=== PATIENT | female | born 1945 | race Caucasian/White ===

== ENCOUNTER 2021-02-08 18:33 | Emergency (ER) | payer MEDICARE ==
[~2021-02-08] VITALS: Ht 160 cm; Wt 68.1 kg
[~2021-02-08 18:33] MED LIST: AMLODIPINE10 MG PO; AMLODIPINE5 MG PO; CEPHALEXIN500 M1 PO; CIPROFLOXACN500 MG PO; CLONIDINE0.1 MG PO; CRESTOR10 MG OR; ENALAPRIL10 MG PO; FLEXERIL OR; HYDROCHLOROT25 MG OR; KEFLEX500 MG PO; LOPRESSOR100 MG OR; LOPRESSOR25 MG PO; LORTAB 1010 MG PO; LORTAB 5 OR; LORTAB 5-325 MG1 TAB PO; LORTAB 5/3255 MG PO; LORTAB 7.5 OR; LOTREL1 CA1 OR; METOPROLOL PO; METRONIDAZOL500 MG PO; NEURONTIN300 MG PO; OMEPRAZOLE10 MG PO; ONDANSETRON4 MG PO; PRAVASTATIN80 MG PO; ROBITUSSIN AC10 ML OR; ROBITUSSIN AC10 ML PO; ULTRAM50 M1 PO; VICODIN1 TAB PO; VOLTAREN75 MG TD; ZANAFLEX4 MG PO; ZANTAC 150 PO; ZOCOR20 M1 PO; ZOCOR20 MG OR; ZOFRAN ODT4 MG OR; ZOFRAN ODT4 MG PO; ZOFRAN4 M1 PO
[2021-02-08 19:55] LABS: HEMATOCRIT 43.5 % (37.0-47.0); HEMOGLOBIN 14.5 g/dl (12.0-16.0); IMMATURE GRANULOCYTES 0.2 % (0.0-5.0); MEAN CELL VOLUME 87.2 fL CALC (80.0-100.0); MEAN CORPUSCULAR HGB 29.1 pG CALC (26.0-32.0); MEAN CORPUSCULAR HGB CONC 33.3 g/dL CAL (32.0-36.0); NEUT# 3.99 thou/uL (2.00-7.15); RED BLOOD COUNT 4.99 mill/uL (4.20-5.60); RED CELL DISTRI WIDTH 12.9 % (11.5-15.5)
[2021-02-08 20:19] LABS: ALBUMIN 4.7 g/dL (3.2-5.0); ALKALINE PHOSPHATASE 97 u/l (38-126); ANION GAP 16 (6-22 (CALC)); BILIRUBIN, TOTAL 0.4 mg/dL (0.0-1.4); BUN 11 mg/dL (8-23); BUN/CREATININE RATIO 16 (12-20 (CALC)); CARBON DIOXIDE 25 mmol/l (22-30); CHLORIDE 105 mmol/l (95-108); CREATININE 0.7 mg/dL (0.5-1.0); GFR > 60 ML/MIN (>=60 (CALC)); GFR FOR AFR.AMER. > 60 ML/MIN (>=60 (CALC)); POTASSIUM 4.3 mmol/l (3.5-5.1); SGOT/AST 25 u/l (9-36); SODIUM 141 mmol/l (137-146); TOTAL PROTEIN 7.9 g/dL (6.3-8.2)
[2021-02-08] MEDS ORDERED: TORADOL PO (21:35)
[2021-02-08 21:42] LABS: URINE BILIRUBIN - DIPSTICK NEGATIVE (NEGATIVE); URINE BLOOD DIPSTICK NEGATIVE (NEGATIVE); URINE COLOR YELLOW; URINE GLUCOSE - DIPSTICK NEGATIVE (NEGATIVE); URINE KETONE NEGATIVE (NEGATIVE); URINE LEUK ESTERASE TRACE (NEGATIVE); URINE PROTEIN - DIPSTICK NEGATIVE (NEG-TRACE); URINE UROBILINOGEN - DIPSTICK 0.2 E.U./dL (0.2)
[2021-02-08 21:43] LABS: URINE NITRITE - DIPSTICK NEGATIVE (Negative)
[2021-02-08 21:53] VITALS: BP 160/96
== END 2021-02-08 22:00 | disposition home or self-care (01) ==
LOC: ED 18:33
PROVIDERS: Family Medicine
DX: S30.0XXA Contusion of lower back and pelvis, initial encounter (principal); S20.211A Contusion of right front wall of thorax, initial encounter; I10 Essential (primary) hypertension; M79.7 Fibromyalgia; G62.9 Polyneuropathy, unspecified; W18.30XA Fall on same level, unspecified, initial encounter; Y92.009 Unspecified place in unspecified non-institutional (private) residence as the place of occurrence of the external cause

== ENCOUNTER 2021-10-18 10:30 | Emergency (ER) | payer MEDICARE ==
[2021-10-18] VITALS (10 sets, daily range): BP systolic 72–146; BP diastolic 58–118
[~2021-10-18] VITALS: Ht 160 cm; Wt 66.0 kg
[~2021-10-18 10:30] MED LIST changes: +TORADOL PO
[2021-10-18 11:53] LABS: URINE BILIRUBIN - DIPSTICK NEGATIVE (NEGATIVE); URINE BLOOD DIPSTICK NEGATIVE (NEGATIVE); URINE COLOR YELLOW; URINE GLUCOSE - DIPSTICK NEGATIVE (NEGATIVE); URINE KETONE NEGATIVE (NEGATIVE); URINE LEUK ESTERASE NEGATIVE (NEGATIVE); URINE PH 5.5 (4.5-8.0); URINE PROTEIN - DIPSTICK NEGATIVE (NEG-TRACE); URINE SPECIFIC GRAVITY <=1.005; URINE UROBILINOGEN - DIPSTICK 0.2 E.U./dL (0.2)
[2021-10-18 11:57] LABS: URINE NITRITE - DIPSTICK NEGATIVE (Negative)
[2021-10-18] MEDS ORDERED: LORTAB 1010 MG PO (12:12)
== END 2021-10-18 12:34 | disposition home or self-care (01) ==
LOC: ED 10:30
PROVIDERS: Emergency Medicine
DX: M48.56XA Collapsed vertebra, not elsewhere classified, lumbar region, initial encounter for fracture (principal); I10 Essential (primary) hypertension; M79.7 Fibromyalgia; G62.9 Polyneuropathy, unspecified

== ENCOUNTER 2021-11-07 09:11 | Emergency (ER) | payer MEDICARE ==
[~2021-11-07] VITALS: Ht 160 cm; Wt 65.9 kg
[2021-11-07 09:17] VITALS: BP 197/164
[2021-11-07 09:56] VITALS: BP 199/104
[2021-11-07 10:21] VITALS: BP 216/99
[2021-11-07] MEDS ORDERED: HYDROCO/APAP1 T10 PO (10:48)
[2021-11-07 10:51] VITALS: BP 216/99
== END 2021-11-07 11:14 | disposition home or self-care (01) ==
LOC: ED 09:11
DX: S32.009A Unspecified fracture of unspecified lumbar vertebra, initial encounter for closed fracture (principal); X58.XXXA Exposure to other specified factors, initial encounter; M16.12 Unilateral primary osteoarthritis, left hip; I10 Essential (primary) hypertension; G62.9 Polyneuropathy, unspecified; M79.7 Fibromyalgia

== ENCOUNTER 2021-11-25 01:05 | Emergency (ER) | payer MEDICARE ==
[~2021-11-25] VITALS: Ht 160 cm; Wt 150.0 kg
[2021-11-25] VITALS (9 sets, daily range): BP systolic 116–198; BP diastolic 77–106
[~2021-11-25 01:05] MED LIST changes: +HYDROCO/APAP1 T10 PO
[2021-11-25 02:00] LABS: HEMOGLOBIN 13.3 g/dl (12.0-16.0); IMMATURE GRANULOCYTES 0.4 % (0.0-5.0); MEAN CELL VOLUME 88.5 fL CALC (80.0-100.0); MEAN CORPUSCULAR HGB 29.4 pG CALC (26.0-32.0); MEAN CORPUSCULAR HGB CONC 33.3 g/dL CAL (32.0-36.0); NEUT# 5.08 thou/uL (2.00-7.15); RED BLOOD COUNT 4.52 mill/uL (4.20-5.60); RED CELL DISTRI WIDTH 12.8 % (11.5-15.5)
[2021-11-25 02:15] LABS: ALBUMIN 4.7 g/dL (3.2-5.0); ALKALINE PHOSPHATASE 91 u/l (38-126); AMYLASE 68 u/l (30-110); ANION GAP 16 (6-22 (CALC)); BILIRUBIN, TOTAL 0.4 mg/dL (0.0-1.4); BUN 15 mg/dL (8-23); BUN/CREATININE RATIO 14 (12-20 (CALC)); CARBON DIOXIDE 24 mmol/l (22-30); CHLORIDE 103 mmol/l (95-108); CREATININE 1.1 mg/dL (0.5-1.0); GFR FOR AFR.AMER. 59 ML/MIN (>=60 (CALC)); GFR OTHER RACES 48 ML/MIN (>=60 (CALC)); LIPASE 97 u/l (23-300); POTASSIUM 3.6 mmol/l (3.5-5.1); SGOT/AST 38 u/l (9-36); SODIUM 140 mmol/l (137-146); TOTAL PROTEIN 7.6 g/dL (6.3-8.2)
[2021-11-25 02:27] LABS: MYOGLOBIN 336 ng/mL (0 - 62)
[2021-11-25 02:31] LABS: URINE BILIRUBIN - DIPSTICK NEGATIVE (NEGATIVE); URINE COLOR YELLOW; URINE GLUCOSE - DIPSTICK NEGATIVE (NEGATIVE); URINE KETONE NEGATIVE (NEGATIVE); URINE PH 5.5 (4.5-8.0); URINE PROTEIN - DIPSTICK NEGATIVE (NEG-TRACE); URINE SPECIFIC GRAVITY <=1.005; URINE UROBILINOGEN - DIPSTICK 0.2 E.U./dL (0.2)
[2021-11-25 02:38] LABS: URINE BLOOD DIPSTICK NEGATIVE (NEGATIVE); URINE LEUK ESTERASE SMALL (NEGATIVE); URINE NITRITE - DIPSTICK NEGATIVE (Negative)
[2021-11-25 02:39] LABS: URINE EPITHELIAL CELLS FEW EPI/hpf (0-FEW)
[2021-11-25 02:40] LABS: URINE BACTERIA MODERATE hpf; URINE FINE GRAN CAST FEW lpf; URINE HYALINE CAST FEW lpf (NONE-RARE)
[2021-11-25] MEDS ORDERED: ONDANSETRON4 MG PO ×2 (03:29→04:04)
[2021-11-25] MEDS ORDERED: MACROBID100 M1 PO ×2 (03:29→04:04)
[2021-11-25] MEDS ORDERED: PREVACID30 M3 PO ×2 (03:29→04:04)
== END 2021-11-25 04:18 | disposition home or self-care (01) ==
LOC: ED 01:05
PROVIDERS: Emergency Medicine
DX: R11.2 Nausea with vomiting, unspecified (principal); N39.0 Urinary tract infection, site not specified; I10 Essential (primary) hypertension; M79.7 Fibromyalgia; G62.9 Polyneuropathy, unspecified
CPT/HCPCS: S0164

== ENCOUNTER 2022-01-25 14:03 | Emergency (ER) | payer MEDICARE ==
[~2022-01-25] VITALS: Ht 160 cm; Wt 68.2 kg
[2022-01-25] VITALS (16 sets, daily range): BP systolic 139–200; BP diastolic 83–147
[~2022-01-25 14:03] MED LIST changes: +MACROBID100 M1 PO; +PREVACID30 M3 PO
[2022-01-25 15:06] LABS: URINE BILIRUBIN - DIPSTICK NEGATIVE (NEGATIVE); URINE BLOOD DIPSTICK NEGATIVE (NEGATIVE); URINE COLOR YELLOW; URINE GLUCOSE - DIPSTICK NEGATIVE (NEGATIVE); URINE KETONE NEGATIVE (NEGATIVE); URINE LEUK ESTERASE NEGATIVE (NEGATIVE); URINE PROTEIN - DIPSTICK NEGATIVE (NEG-TRACE); URINE UROBILINOGEN - DIPSTICK 0.2 E.U./dL (0.2)
[2022-01-25 15:06] LABS: HEMATOCRIT 42.7 % (37.0-47.0); HEMOGLOBIN 14.3 g/dl (12.0-16.0); MEAN CELL VOLUME 88.6 fL CALC (80.0-100.0); MEAN CORPUSCULAR HGB 29.7 pG CALC (26.0-32.0); MEAN CORPUSCULAR HGB CONC 33.5 g/dL CAL (32.0-36.0); NEUT# 1.65 thou/uL (2.00-7.15); RED BLOOD COUNT 4.82 mill/uL (4.20-5.60); RED CELL DISTRI WIDTH 13.2 % (11.5-15.5)
[2022-01-25 15:07] LABS: URINE NITRITE - DIPSTICK NEGATIVE (Negative)
[2022-01-25 15:22] LABS: ALBUMIN 4.7 g/dL (3.2-5.0); ALKALINE PHOSPHATASE 90 u/l (38-126); ANION GAP 15 (6-22 (CALC)); BILIRUBIN, TOTAL 0.4 mg/dL (0.0-1.4); BUN 13 mg/dL (8-23); BUN/CREATININE RATIO 15 (12-20 (CALC)); CARBON DIOXIDE 21 mmol/l (22-30); CHLORIDE 108 mmol/l (95-108); CREATININE 0.9 mg/dL (0.5-1.0); GFR FOR AFR.AMER. > 60 ML/MIN (>=60 (CALC)); GFR OTHER RACES > 60 ML/MIN (>=60 (CALC)); LIPASE 87 u/l (23-300); POTASSIUM 3.9 mmol/l (3.5-5.1); SGOT/AST 35 u/l (9-36); SODIUM 140 mmol/l (137-146); TOTAL PROTEIN 7.8 g/dL (6.3-8.2)
[2022-01-25] MEDS ORDERED: GABAPENTIN300 M2 PO (18:47)
[2022-01-25] MEDS ORDERED: REGLAN10 MG PO (18:47)
[2022-01-25] MEDS ORDERED: ONDANSETRON4 MG PO (18:47)
== END 2022-01-25 19:45 | disposition home or self-care (01) ==
LOC: ED 14:03
PROVIDERS: Nurse Practitioner
DX: U07.1 COVID-19 (principal); R11.0 Nausea; M25.50 Pain in unspecified joint; M79.7 Fibromyalgia; I10 Essential (primary) hypertension; G62.9 Polyneuropathy, unspecified; T46.5X6A Underdosing of other antihypertensive drugs, initial encounter; Z91.128 Patient's intentional underdosing of medication regimen for other reason

== ENCOUNTER 2023-08-27 23:54 | Emergency (ER) | payer MEDICARE ==
[~2023-08-27] VITALS: Ht 160 cm; Wt 64.0 kg
[~2023-08-27 23:54] MED LIST changes: +GABAPENTIN300 M2 PO; +REGLAN10 MG PO
[2023-08-28] VITALS (11 sets, daily range): BP systolic 63–131; BP diastolic 20–78
[2023-08-28] MEDS ORDERED: ASPIRIN 81 MG/TAB PO ONE (00:20)
[2023-08-28] MEDS ORDERED: HYDROcodone 5 MG/Acetaminophen 325 MG/COMBO PO ONE (00:25)
[2023-08-28] MEDS ORDERED: KETOROLAC TROMETHAMINE 30 MG/ML SDV IV ONE (00:25)
[2023-08-28] MEDS ORDERED: SODIUM CHLORIDE 0.9% 1,000 ML IV ONE (00:25)
[2023-08-28] MEDS ORDERED: CRESTOR10 MG PO (00:28)
[2023-08-28] MEDS ORDERED: VITAMIN D-32000 UNI1 PO (00:29)
[2023-08-28] MEDS ORDERED: LORTAB 5/3255 MG PO (00:31)
[2023-08-28] MEDS ORDERED: VAZALORE325 MG PO (00:32)
[2023-08-28 00:45] LABS: ALBUMIN 4.3 g/dL (3.2-5.0); ALKALINE PHOSPHATASE 67 u/l (38-126); ANION GAP 9 (6-22 (CALC)); BILIRUBIN, TOTAL 0.4 mg/dL (0.02-1.3); BUN 13 mg/dL (8-23); BUN/CREATININE RATIO 12 (12-20 (CALC)); CHLORIDE 108 mmol/l (95-108); CREATININE 1.1 mg/dL (0.5-1.0); ESTIMATED GFR 52 ML/MIN (>=90 (CALC)); POTASSIUM 4.2 mmol/l (3.5-5.1); SGOT/AST 25 u/l (9-36); SODIUM 139 mmol/l (137-146); TOTAL PROTEIN 7.1 g/dL (6.3-8.2)
[2023-08-28 00:46] LABS: BASO% 0.3 % (0-3); EOS% 0.5 % (0-8); HEMATOCRIT 44.3 % (37.0-47.0); HEMOGLOBIN 13.9 g/dl (12.0-16.0); IMMATURE GRANULOCYTES 0.4 % (0.0-5.0); LYMPH% 26.5 % (15-41); MEAN CELL VOLUME 93.7 fL CALC (80.0-100.0); MEAN CORPUSCULAR HGB 29.4 pG CALC (26.0-32.0); MEAN CORPUSCULAR HGB CONC 31.4 g/dL CAL (32.0-36.0); MONO% 7.1 % (2-13); NEUT# 5.06 thou/uL (2.00-7.15); NEUT% 65.2 % (42-76); RED BLOOD COUNT 4.73 mill/uL (4.20-5.60)
[2023-08-28 01:01] LABS: CARBON DIOXIDE 26 mmol/l (22-30)
[2023-08-28 01:45] LABS: URINE BILIRUBIN - DIPSTICK Negative (NEGATIVE); URINE BLOOD DIPSTICK Negative (NEGATIVE); URINE GLUCOSE - DIPSTICK Negative (NEGATIVE); URINE KETONE Negative (NEGATIVE); URINE LEUK ESTERASE Trace (NEGATIVE); URINE NITRITE - DIPSTICK Negative (Negative); URINE PROTEIN - DIPSTICK 100 mg/dL (NEG-TRACE); URINE SPECIFIC GRAVITY 1.015; URINE UROBILINOGEN - DIPSTICK 0.2 E.U./dL (0.2)
[2023-08-28 01:50] LABS: URINE COLOR Yellow
[2023-08-28 01:52] LABS: URINE BACTERIA FEW hpf; URINE EPITHELIAL CELLS FEW EPI/hpf (0-FEW); URINE MUCUS FEW hpf (NONE-FEW)
== END 2023-08-28 02:12 | disposition home or self-care (01) ==
LOC: ED 23:54
PROVIDERS: Family Medicine
DX: M54.2 Cervicalgia (principal); R07.89 Other chest pain; M25.512 Pain in left shoulder; M25.511 Pain in right shoulder; I10 Essential (primary) hypertension; G62.9 Polyneuropathy, unspecified; M79.7 Fibromyalgia

== ENCOUNTER 2023-09-23 21:53 | Emergency (ER) | payer MEDICARE ==
[~2023-09-23] VITALS: Ht 160 cm; Wt 63.0 kg
[~2023-09-23 21:53] MED LIST changes: +CRESTOR10 MG PO; +VAZALORE325 MG PO; +VITAMIN D-32000 UNI1 PO
[2023-09-23 22:12] VITALS: BP 225/119
[2023-09-23] MEDS ORDERED: DICYCLOMINE HCL 20 MG/2 ML VIAL IM ONE (22:15)
[2023-09-23] MEDS ORDERED: DEXTROSE 5% w/NACL 0.45 1,000 ML IV ONE (22:15)
[2023-09-23] MEDS ORDERED: ONDANSETRON HCl 4 MG/2 ML SDV IV ONE (22:15)
[2023-09-23] MEDS ORDERED: ENALAPRILAT 1.25 MG/ML 1ML IV ONE (22:25)
[2023-09-23] MEDS ORDERED: FAMOTIDINE 10MG/ML 2ML SDV IV ONE (22:25)
[2023-09-23 22:32] VITALS: BP 222/105
[2023-09-23 22:37] VITALS: BP 219/110
[2023-09-23 22:45] VITALS: BP 230/103
[2023-09-23 22:50] VITALS: BP 235/111
[2023-09-23] MEDS ORDERED: MORPHINE SULFATE 4 MG/ML VIAL IV ONE (22:55)
[2023-09-23 23:00] VITALS: BP 225/110
[2023-09-23 23:27] LABS: BASO% 0.2 % (0-3); EOS% 0.7 % (0-8); HEMOGLOBIN 14.6 g/dl (12.0-16.0); IMMATURE GRANULOCYTES 0.5 % (0.0-5.0); LYMPH% 16.3 % (15-41); MEAN CORPUSCULAR HGB 30.5 pG CALC (26.0-32.0); MONO% 4.3 % (2-13); NEUT# 7.44 thou/uL (2.00-7.15); RED BLOOD COUNT 4.78 mill/uL (4.20-5.60); RED CELL DISTRI WIDTH 12.7 % (11.5-15.5)
[2023-09-23 23:38] LABS: ALBUMIN 4.8 g/dL (3.2-5.0); BILIRUBIN, TOTAL 0.9 mg/dL (0.02-1.3); CREATININE 0.8 mg/dL (0.5-1.0); POTASSIUM 4.8 mmol/l (3.5-5.1); TOTAL PROTEIN 8.2 g/dL (6.3-8.2)
[2023-09-24] VITALS (16 sets, daily range): BP systolic 156–226; BP diastolic 97–205
[2023-09-24 00:21] LABS: URINE BILIRUBIN - DIPSTICK Negative (NEGATIVE); URINE BLOOD DIPSTICK Negative (NEGATIVE); URINE COLOR Yellow; URINE GLUCOSE - DIPSTICK 250 mg/dL (NEGATIVE); URINE KETONE Negative (NEGATIVE); URINE LEUK ESTERASE Negative (NEGATIVE); URINE NITRITE - DIPSTICK Negative (Negative); URINE PROTEIN - DIPSTICK Negative (NEG-TRACE); URINE SPECIFIC GRAVITY 1.015; URINE UROBILINOGEN - DIPSTICK 0.2 E.U./dL (0.2)
[2023-09-24] MEDS ORDERED: LABETALOL HCL 20 MG/ 4 ML CARTRG IV ONE ×2 (01:15→02:20)
[2023-09-24] MEDS ORDERED: MORPHINE SULFATE 4 MG/ML VIAL IV ONE (01:15)
[2023-09-24] MEDS ORDERED: GABAPENTIN 300 MG/CAP PO ONE (02:15)
[2023-09-24] MEDS ORDERED: hydrALAZINE HCL 20 MG/ML VIAL(1 ML) IV ONE (03:10)
[2023-09-24] MEDS ORDERED: LORazepam 2 MG/ML IV ONE (03:45)
== END 2023-09-24 04:35 | disposition home or self-care (01) ==
LOC: ED 21:53
PROVIDERS: Emergency Medicine
DX: R11.2 Nausea with vomiting, unspecified (principal); M54.50 Low back pain, unspecified; G89.29 Other chronic pain; M79.7 Fibromyalgia; I10 Essential (primary) hypertension; G62.9 Polyneuropathy, unspecified; Z20.822 Contact with and (suspected) exposure to COVID-19
CPT/HCPCS: J2060

== ENCOUNTER 2023-09-25 21:01 | Emergency (ER) | payer MEDICARE ==
[2023-09-25] VITALS (10 sets, daily range): BP systolic 126–199; BP diastolic 86–119
[~2023-09-25] VITALS: Ht 160 cm; Wt 65.0 kg
[2023-09-25] MEDS ORDERED: SODIUM CHLORIDE 0.9% 1,000 ML IV ONE (21:10)
[2023-09-25 22:11] LABS: HEMATOCRIT 48.8 % (37.0-47.0); IMMATURE GRANULOCYTES 1.1 % (0.0-5.0); LYMPH% 4.7 % (15-41); MEAN CELL VOLUME 92.2 fL CALC (80.0-100.0); MEAN CORPUSCULAR HGB 30.2 pG CALC (26.0-32.0); MEAN CORPUSCULAR HGB CONC 32.8 g/dL CAL (32.0-36.0); MONO% 6.6 % (2-13); NEUT# 18.61 thou/uL (2.00-7.15); NEUT% 87.6 % (42-76); RED BLOOD COUNT 5.29 mill/uL (4.20-5.60); RED CELL DISTRI WIDTH 13.3 % (11.5-15.5)
[2023-09-25 22:19] LABS: INTERNATIONAL NORMALIZED RATIO 1.2 RATIO (0.7-1.3)
[2023-09-25 22:20] LABS: ALBUMIN 4.5 g/dL (3.2-5.0); ALKALINE PHOSPHATASE 85 u/l (38-126); ANION GAP 12 (6-22 (CALC)); CARBON DIOXIDE 25 mmol/l (22-30); CHLORIDE 110 mmol/l (95-108); ESTIMATED GFR 58 ML/MIN (>=90 (CALC)); ETHYL ALCOHOL 0 mg/dl (0-30); POTASSIUM 4.1 mmol/l (3.5-5.1); SODIUM 143 mmol/l (137-146); TOTAL PROTEIN 7.2 g/dL (6.3-8.2)
[2023-09-25 22:23] LABS: BUN 38 mg/dL (8-23); BUN/CREATININE RATIO 38 (12-20 (CALC)); SGOT/AST 187 u/l (9-36)
[2023-09-25] MEDS ORDERED: NITROGLYCERIN 2% OINT UD 1 GM/PAK TD ONE (22:35)
[2023-09-25] MEDS ORDERED: LABETALOL HCL 20 MG/ 4 ML CARTRG IV ONE (22:35)
[2023-09-25] MEDS ORDERED: ASPIRIN 81 MG/TAB PO ONE (22:35)
[2023-09-25] MEDS ORDERED: LACTATED RINGER'S 1,000 ML IV ONE (22:40)
[2023-09-25 23:01] LABS: URINE BLOOD DIPSTICK Large (NEGATIVE); URINE GLUCOSE - DIPSTICK Negative (NEGATIVE); URINE KETONE 15 mg/dL (NEGATIVE); URINE LEUK ESTERASE Negative (NEGATIVE); URINE NITRITE - DIPSTICK Negative (Negative); URINE PROTEIN - DIPSTICK >=300 mg/dL (NEG-TRACE); URINE SPECIFIC GRAVITY 1.025; URINE UROBILINOGEN - DIPSTICK 0.2 E.U./dL (0.2)
[2023-09-25 23:04] LABS: URINE COLOR Dark yellow
[2023-09-25 23:10] LABS: URINE RBC 0-2 RBC/hpf (0-5)
[2023-09-25 23:11] LABS: URINE BACTERIA RARE hpf; URINE TRANSITIONAL EPI. CELLS FEW hpf
[2023-09-25 23:12] LABS: URINE HYALINE CAST FEW lpf (NONE-RARE)
[2023-09-25] MEDS ORDERED: Heparin SODIUM (Porcine) 5,000 UNITS/ML SDV IV ONE (23:55)
[2023-09-25] MEDS ORDERED: Heparin SODIUM (Porcine) 500 ML IV ONE (23:55)
[2023-09-26] VITALS (9 sets, daily range): BP systolic 91–208; BP diastolic 53–117
[2023-09-26] MEDS ORDERED: METOPROLOL SUCCINATE 50 MG/TAB PO ONE (00:55)
[2023-09-26] MEDS ORDERED: LABETALOL HCL 20 MG/ 4 ML CARTRG IV ONE (00:55)
== END 2023-09-26 02:15 | disposition short-term general hospital (02) ==
LOC: ED 21:01
PROVIDERS: Family Medicine
DX: R41.82 Altered mental status, unspecified (principal); R79.89 Other specified abnormal findings of blood chemistry; I10 Essential (primary) hypertension; G62.9 Polyneuropathy, unspecified; M79.7 Fibromyalgia; Z20.822 Contact with and (suspected) exposure to COVID-19
CPT/HCPCS: J1644